=== PATIENT | male | born 1985 | race Caucasian/White ===

== ENCOUNTER 2017-07-02 21:12 | Emergency (ER) | payer OTHER ==
[~2017-07-02] VITALS: Ht 185.4 cm; Wt 92.9 kg
[2017-07-02 21:16] VITALS: BP 138/74
[2017-07-02] MEDS ORDERED: LIDOCAINE 1%, 20ML ONE (21:39)
== END 2017-07-02 22:10 | disposition home or self-care (01) ==
LOC: ED 22:04
DX: T16.1XXA Foreign body in right ear, initial encounter (principal); Y93.89 Activity, other specified; Y99.8 Other external cause status; Y92.89 Other specified places as the place of occurrence of the external cause
CPT/HCPCS: 69200; 99285